=== PATIENT | male | born 1975 | race Two or more races ===

== ENCOUNTER 2020-02-12 06:21 | Emergency (ER) | payer SELFPAY ==
[~2020-02-12] VITALS: Ht 175.3 cm; Wt 86.4 kg
[2020-02-12 06:25] VITALS: Ht 175.3 cm; Wt 86.4 kg
[2020-02-12 07:13] LABS: CALC OSMOLALITY 275 mosm/kg (275-300); CALCIUM 8.5 mg/dL (8.5-10.1); CHLORIDE - SERUM 103 mmol/L (98-107); CREATININE - SERUM 1.4 mg/dL (0.6-1.3); GLUCOSE 148 mg/dL (74-106); POTASSIUM - SERUM 3.3 mmol/L (3.5-5.1); SODIUM 136 mmol/L (136-145); UREA NITROGEN 14 mg/dL (7-18); eGFR NON AFRICAN AMERICAN 59 mL/min (90-120)
[2020-02-12 07:22] LABS: ALBUMIN 3.9 g/dL (3.4-5.0); ALKALINE PHOSPHATASE 163 U/L (30-120); ALT (SGPT) 47 U/L (10-68); BILIRUBIN - TOTAL 1.34 mg/dL (0.2-1.3); C-REACTIVE PROTEIN 1.4 mg/dL (0.0-0.9); LIPASE 75 U/L (73-393); PROTEIN - SERUM 7.9 g/dL (6.4-8.2); TROPONIN-I < 0.017 ng/mL (0.000-0.060)
[2020-02-12 07:38] LABS: BASOPHILS 0 % (0-2); EOSINOPHILS 0.2 % (0-7); HEMATOCRIT 42.1 % (42.0-54.0); HEMOGLOBIN 14.8 g/dL (13.5-17.5); IMMATURE GRANULOCYTES 0.2 % (0-5); LYMPHOCYTES 13.1 % (15-50); MCH 31.6 pg (26.0-34.0); MCHC 35.2 g/dL (31.0-37.0); MCV 89.8 fL (80.0-100.0); MONOCYTES 6.5 % (2-11); PLATELET COUNT 223 10x3/uL (130-400); RBC 4.69 10x6/uL (4.20-6.10); RDW 12.7 % (11.5-14.5); WBC 8.2 10x3/uL (4.8-10.8)
[2020-02-12 08:36] LABS: BILIRUBIN NEGATIVE (NEGATIVE); KETONE NEGATIVE (NEGATIVE); NITRITE NEGATIVE (NEGATIVE); UROBILINOGEN NORMAL (NORMAL)
[2020-02-12 08:44] LABS: RED CELLS - URINE 0-5 /hpf (0-5); WHITE CELLS - URINE NSEEN /hpf (NEGATIVE)
[2020-02-12 08:45] LABS: AMORPHOUS SEDIMENT >1+ /lpf (NONE SEEN); BACTERIA MODERATE /hpf (NEGATIVE); EPITHELIAL CELLS NSEEN /hpf (0-5)
[2020-02-12 08:46] LABS: CALCIUM OXALATE CRYSTALS 0-5 /hpf (NONE SEEN)
[2020-02-12] MEDS ORDERED: NORCO 7.5-3251 EACH GT (09:13)
[2020-02-12] MEDS ORDERED: FLOMAX0.4 MG PO (09:13)
[2020-02-12 09:34] VITALS: BP 112/61
== END 2020-02-12 09:39 | disposition home or self-care (01) ==
LOC: D.ER 06:21
PROVIDERS: Family Medicine
DX: N20.1 Calculus of ureter (principal); R10.32 Left lower quadrant pain